=== PATIENT | male | born 1960 | race Caucasian/White ===

== ENCOUNTER 2017-12-10 15:19 | Emergency (ER) | payer MEDICARE, MEDICAID ==
[~2017-12-10] VITALS: Ht 182.9 cm; Wt 92.0 kg
[~2017-12-10 15:19] MED LIST: ALBU18HF2 INH; AMI25T PO; CLON0.5T23 PO; IBUP-1984 PO; META800T87 PO; METH20TA PO; MORP60TA32 PO; MULT-1085 PO; OXYC-150 PO; SPIIN INH
[2017-12-10] MEDS ORDERED: AZIT-55 PO (15:38)
[2017-12-10 15:56] VITALS: BP 131/83
== END 2017-12-10 16:00 | disposition home or self-care (01) ==
LOC: ER 15:20
DX: J20.9 Acute bronchitis, unspecified (principal); J45.909 Unspecified asthma, uncomplicated; G89.29 Other chronic pain; Z98.890 Other specified postprocedural states; Z87.891 Personal history of nicotine dependence; Z88.8 Allergy status to other drugs, medicaments and biological substances; Z79.899 Other long term (current) drug therapy
CPT/HCPCS: 99283

== ENCOUNTER 2017-12-21 17:30 | Emergency (ER) | payer MEDICARE, MEDICAID ==
[~2017-12-21] VITALS: Ht 185.4 cm; Wt 105.0 kg
[~2017-12-21 17:30] MED LIST changes: +AZIT-55 PO
[2017-12-21 18:04] LABS: BASOPHILS # (AUTO) 0.1 X10'3 (0-0.2); BASOPHILS % (AUTO) 1.3 % (0-1); EOSINOPHILS # (AUTO) 0.1 X10'3 (0-0.9); EOSINOPHILS % (AUTO) 1.6 % (0-6); HEMATOCRIT 45.9 % (42.0-52.0); HEMOGLOBIN 15.7 g/dl (14.0-17.9); LYMPHOCYTES # (AUTO) 3.3 X10'3 (1.1-4.8); LYMPHOCYTES % (AUTO) 35.4 % (21-51); MEAN CORPUSCULAR HEMOGLOBIN 30.8 PG (27.0-31.0); MEAN CORPUSCULAR HGB CONC 34.3 % (33.0-36.5); MEAN CORPUSCULAR VOLUME 89.8 FL (78-98); MEAN PLATELET VOLUME 7.7 FL (7.4-10.4); MONOCYTES # (AUTO) 0.5 X10'3 (0-0.9); MONOCYTES % (AUTO) 5.6 % (2-12); NEUTROPHILS # (AUTO) 5.2 X10'3 (1.8-7.7); NEUTROPHILS % (AUTO) 56.1 % (42-75); PLATELET COUNT 388 X10'3 (140-440); RED BLOOD COUNT 5.11 X10'6 (4.70-6.10); WHITE BLOOD COUNT 9.3 X10'3 (4.5-11.0)
[2017-12-21 18:08] LABS: CLARITY,URINE CLEAR (Clear); COLOR,URINE YELLOW (Yellow); GLUCOSE, URINE NEGATIVE (Neg); KETONES,URINE NEGATIVE (Neg); LEUKOCYTE ESTERASE ,URINE NEGATIVE (Neg); NITRITES, URINE NEGATIVE (Neg); OCCULT BLOOD,URINE NEGATIVE (Neg); PROTEIN,URINE NEGATIVE (Neg); UROBILINOGEN,URINE 0.2 E.U/dL (0.2-1.0)
[2017-12-21 18:13] LABS: UA COLLECTION TYPE CLN CATCH MIDSTREAM
[2017-12-21 18:14] LABS: PARTIAL THROMBOPLASTIN TIME 27 SECONDS (22-32)
[2017-12-21 18:20] LABS: ALANINE AMINOTRANSFERASE 31 U/L (12-78); ALBUMIN 4.4 G/DL (3.4-5.0); ALBUMIN/GLOBULIN RATIO 1.1 (1.1-1.5); ALKALINE PHOSPHATASE 83 IU/L (46-116); ANION GAP 9 (8-16); ASPARTATE AMINO TRANSFERASE 18 U/L (10-37); BILIRUBIN,TOTAL 0.5 MG/DL (0.1-1.0); BLOOD UREA NITROGEN 15 MG/DL (7-18); BUN/CREATININE RATIO 14.6 (5.4-32.0); CALCIUM 9.9 MG/DL (8.5-10.1); CHLORIDE 102 MMOL/L (99-107); CREATININE 1.03 MG/DL (0.60-1.10); GLUCOSE 106 MG/DL (70-104); POTASSIUM 4.1 MMOL/L (3.5-5.1); SODIUM 141 MMOL/L (135-145); TOTAL CARBON DIOXIDE 29.9 MMOL/L (24-32); TOTAL PROTEIN 8.4 G/DL (6.4-8.2); eGFR 74 ML/MIN
[2017-12-21] MEDS ORDERED: APAP (18:28)
[2017-12-21] MEDS ORDERED: METHYLPHENIDATE 20 MG (18:28)
[2017-12-21] MEDS ORDERED: MORPHINE (18:28)
[2017-12-21] MEDS ORDERED: AZITHROMYCIN 250 MG TABLET (18:28)
[2017-12-21] MEDS ORDERED: VENTOLIN (18:28)
[2017-12-21] MEDS ORDERED: CLONAZEPAM 1 MG (18:28)
[2017-12-21] MEDS ORDERED: TIOTROPIUM (18:28)
[2017-12-21] MEDS ORDERED: OXYCODONE (18:28)
[2017-12-21 19:08] VITALS: BP 114/71
[2017-12-23 13:30] LABS: OCCULT BLOOD STOOL NEGATIVE (Neg)
== END 2017-12-21 19:11 | disposition home or self-care (01) ==
LOC: ER 17:31
DX: K64.9 Unspecified hemorrhoids (principal); G89.29 Other chronic pain; J45.909 Unspecified asthma, uncomplicated; Z88.8 Allergy status to other drugs, medicaments and biological substances; Z79.899 Other long term (current) drug therapy
CPT/HCPCS: 36415; 80053; 81003; 82272; 85025; 85610; 85730; 86885; 86900; 86901; 99284

== ENCOUNTER 2018-05-08 06:23 | Day surgery (SDC) | payer MEDICAID, MEDICARE ==
[2018-05-01 13:56] LABS: BASOPHILS % (AUTO) 0.4 % (0-1); EOSINOPHILS # (AUTO) 0.2 X10'3 (0-0.9); EOSINOPHILS % (AUTO) 2.4 % (0-6); LYMPHOCYTES # (AUTO) 3.2 X10'3 (1.1-4.8); LYMPHOCYTES % (AUTO) 33.1 % (21-51); MEAN CORPUSCULAR HEMOGLOBIN 31.1 PG (27.0-31.0); MEAN CORPUSCULAR HGB CONC 33.4 % (33.0-36.5); MEAN CORPUSCULAR VOLUME 93.2 FL (78-98); MEAN PLATELET VOLUME 7.3 FL (7.4-10.4); MONOCYTES # (AUTO) 0.7 X10'3 (0-0.9); MONOCYTES % (AUTO) 7.3 % (2-12); NEUTROPHILS # (AUTO) 5.4 X10'3 (1.8-7.7); NEUTROPHILS % (AUTO) 56.8 % (42-75); PRE OP HEMATOCRIT 40.9 % (42.0-52.0); PRE OP HEMOGLOBIN 13.7 g/dL (14.0-17.9); PRE OP PLATELET COUNT 279 X10'3 (140-440); RED BLOOD COUNT 4.39 X10'6 (4.70-6.10); RED CELL DISTRIBUTION WIDTH 15.5 % (11.5-14.5)
[2018-05-01 14:13] LABS: ALBUMIN/GLOBULIN RATIO 1.1 (1.1-1.5); ALKALINE PHOSPHATASE 82 IU/L (46-116); BLOOD UREA NITROGEN 10 MG/DL (7-18); BUN/CREATININE RATIO 10.4 (5.4-32.0); CALCIUM 9.6 MG/DL (8.5-10.1); CHLORIDE 105 MMOL/L (99-107); CREATININE 0.96 MG/DL (0.60-1.10); PRE OP ALT 32 U/L (30-65); PRE OP ANION GAP 10 (8-16); PRE OP AST 18 U/L (10-37); PRE OP BILIRUB, TOTAL 0.3 MG/DL (0.0-1.0); PRE OP GLUCOSE 145 MG/DL (70-104); PRE OP POTASSIUM 3.6 MMOL/L (3.4-5.1); PRE OP SODIUM 141 MMOL/L (135-145); TOTAL CARBON DIOXIDE 26.3 MMOL/L (24-32); TOTAL PROTEIN 7.7 G/DL (6.4-8.2); eGFR 81 ML/MIN
[2018-05-08] VITALS (9 sets, daily range): BP systolic 91–118; BP diastolic 42–74
[~2018-05-08] VITALS: Ht 182.9 cm; Wt 93.2 kg
[~2018-05-08 06:23] MED LIST changes: -ALBU18HF2 INH; -AMI25T PO; +AMIT-189 PO; -AZIT-55 PO; -CLON0.5T23 PO; +Cefazolin 2GM/100ML NS IVPB 100 ML IV ONE; +IPRA4AER IH; +LISI30TA4 PO; +META-25 PO; -META800T87 PO; +MORP30TA60 PO; -MORP60TA32 PO; -OXYC-150 PO; +PER10325T PO; -SPIIN INH; +[UNRECOGNIZED DRUG - OTHER]; +albuterol 2.5 MG/3 ML nebule NEB ONE; +famotidine 20mg tablet PO ONE; +ringers solution, lacted 1,000 ML IV SCH
[2018-05-08] MEDS ORDERED: LIDOcaine 1% (10mg/ml) 2ml vial ONE (06:37)
[2018-05-08] MEDS ORDERED: BUPIVAcaine/PF 7.5mg/ml (0.75%) 10ml vial ONE (08:11)
[2018-05-08] MEDS ORDERED: ringers solution, lacted 1,000 ML IV SCH (08:21)
[2018-05-08] MEDS ORDERED: LIDOcaine 0.5% (5mg/ml) 50ml vial ONE (08:22)
[2018-05-08] MEDS ORDERED: ondansetron/PF 4mg/2ml inj IV PRN (08:25)
[2018-05-08] MEDS ORDERED: meperidine/PF 25mg/ml syringe IV PRN ×3 (08:25)
[2018-05-08] MEDS ORDERED: morphine 4 MG/ML inj SYRINge IV PRN ×2 (08:25)
[2018-05-08] MEDS ORDERED: proCHLORperazine 10 MG/2 ml inj IV PRN (08:25)
[2018-05-08] MEDS ORDERED: fentaNYL/PF 50MCG/1 ML 2ML syringe ONE (08:26)
[2018-05-08] MEDS ORDERED: midazolam 2 mg/2 ml injection ONE ×2 (08:27→08:47)
[2018-05-08] MEDS ORDERED: propofol inj 20 ML IV ONE (08:48)
== END 2018-05-08 10:36 | disposition home or self-care (01) ==
LOC: PAS 06:23
PROVIDERS: ATTEND Orthopaedic Surgery Hand Surgery
DX: M18.12 Unilateral primary osteoarthritis of first carpometacarpal joint, left hand (principal); M25.742 Osteophyte, left hand; F17.210 Nicotine dependence, cigarettes, uncomplicated; J45.998 Other asthma; I10 Essential (primary) hypertension; F41.8 Other specified anxiety disorders; M19.90 Unspecified osteoarthritis, unspecified site; Z79.2 Long term (current) use of antibiotics; G89.29 Other chronic pain; Z91.048 Other nonmedicinal substance allergy status; Z79.891 Long term (current) use of opiate analgesic; Z88.5 Allergy status to narcotic agent; Z88.8 Allergy status to other drugs, medicaments and biological substances; Z79.899 Other long term (current) drug therapy; Z98.890 Other specified postprocedural states
CPT/HCPCS: 25447; 36415; 80053; 82948; 85025; 94640; 94760; A6449; J0690; J2001; J2250; J2704; J3010; J3490; J7120; L8630; A7000

== ENCOUNTER 2018-06-08 22:41 | Emergency (ER) | payer MEDICARE, OTHER ==
[~2018-06-08] VITALS: Ht 182.9 cm; Wt 92.3 kg
[~2018-06-08 22:41] MED LIST changes: -Cefazolin 2GM/100ML NS IVPB 100 ML IV ONE; -albuterol 2.5 MG/3 ML nebule NEB ONE; -famotidine 20mg tablet PO ONE; -ringers solution, lacted 1,000 ML IV SCH
[2018-06-08 22:54] VITALS: BP 118/45
[2018-06-08] MEDS ORDERED: oxyCODONE/APAP 10/325mg tablet PO ONE (23:20)
[2018-06-08] MEDS ORDERED: PENI250T2 PO (23:23)
== END 2018-06-08 23:29 | disposition home or self-care (01) ==
LOC: ER 22:41
DX: K04.7 Periapical abscess without sinus (principal); K02.9 Dental caries, unspecified; J45.909 Unspecified asthma, uncomplicated; G89.29 Other chronic pain; Z90.89 Acquired absence of other organs; Z98.890 Other specified postprocedural states; Z88.8 Allergy status to other drugs, medicaments and biological substances; Z79.2 Long term (current) use of antibiotics; Z79.899 Other long term (current) drug therapy
CPT/HCPCS: 99283

== ENCOUNTER 2018-11-08 19:40 | Emergency (ER) | payer MEDICARE, MEDICAID ==
[~2018-11-08] VITALS: Ht 182.9 cm; Wt 102.9 kg
[2018-11-08 19:49] VITALS: BP 154/86
[2018-11-08] MEDS ORDERED: AZIT250T PO (20:44)
[2018-11-08] MEDS ORDERED: ROBDML PO (20:44)
[2018-11-08] MEDS ORDERED: BENZ-16 PO (20:44)
[2018-11-08] MEDS ORDERED: ALBU8.5H8 IH (21:09)
== END 2018-11-08 21:27 | disposition home or self-care (01) ==
LOC: ER 19:40
DX: J20.9 Acute bronchitis, unspecified (principal); J45.909 Unspecified asthma, uncomplicated; G89.29 Other chronic pain; Z90.89 Acquired absence of other organs; Z98.890 Other specified postprocedural states; Z88.8 Allergy status to other drugs, medicaments and biological substances; Z79.2 Long term (current) use of antibiotics; Z79.899 Other long term (current) drug therapy
CPT/HCPCS: 99283

== ENCOUNTER 2019-08-21 14:44 | Emergency (ER) | payer MEDICARE, MEDICAID ==
[~2019-08-21] VITALS: Ht 182.9 cm; Wt 109.1 kg
[~2019-08-21 14:44] MED LIST changes: +ALBU8.5H8 IH; +ROBDML PO
[2019-08-21] MEDS ORDERED: ipratropium/albuterol 3ml nebule NEB ONE (15:20)
[2019-08-21] MEDS ORDERED: predniSONE 20 mg tablet PO ONE (15:20)
[2019-08-21 15:45] VITALS: BP 134/74
[2019-08-21 15:49] LABS: BASOPHILS # (AUTO) 0.1 X10'3 (0-0.2); BASOPHILS % (AUTO) 1.1 % (0-1); EOSINOPHILS # (AUTO) 0.2 X10'3 (0-0.9); HEMOGLOBIN 13.5 g/dl (14.0-17.9); LYMPHOCYTES # (AUTO) 2.7 X10'3 (1.1-4.8); LYMPHOCYTES % (AUTO) 36.9 % (21-51); MEAN CORPUSCULAR HEMOGLOBIN 30.6 PG (27.0-31.0); MEAN CORPUSCULAR HGB CONC 33.8 g/dL (33.0-36.5); MEAN CORPUSCULAR VOLUME 90.6 FL (78-98); MONOCYTES # (AUTO) 0.8 X10'3 (0-0.9); MONOCYTES % (AUTO) 10.6 % (2-12); NEUTROPHILS # (AUTO) 3.6 X10'3 (1.8-7.7); NEUTROPHILS % (AUTO) 48.4 % (42-75); PLATELET COUNT 269 X10'3 (140-440); RED BLOOD COUNT 4.42 X10'6 (4.70-6.10); RED CELL DISTRIBUTION WIDTH 15.4 % (11.5-14.5); WHITE BLOOD COUNT 7.4 X10'3 (4.5-11.0)
[2019-08-21 15:58] LABS: ALANINE AMINOTRANSFERASE 32 U/L (12-78); ALBUMIN 3.6 G/DL (3.4-5.0); ALKALINE PHOSPHATASE 102 IU/L (46-116); ANION GAP 9 (8-16); ASPARTATE AMINO TRANSFERASE 20 U/L (10-37); BILIRUBIN,TOTAL 0.2 MG/DL (0.1-1.0); BLOOD UREA NITROGEN 11 MG/DL (7-18); BUN/CREATININE RATIO 11.6 (5.4-32.0); CALCIUM 8.8 MG/DL (8.5-10.1); CHLORIDE 105 MMOL/L (99-107); CREATININE 0.95 MG/DL (0.60-1.10); GLUCOSE 156 MG/DL (70-104); POTASSIUM 3.9 MMOL/L (3.5-5.1); SODIUM 142 MMOL/L (135-145); TOTAL CARBON DIOXIDE 27.6 MMOL/L (24-32); TOTAL PROTEIN 7.1 G/DL (6.4-8.2); eGFR 81 ML/MIN
[2019-08-21 16:06] LABS: D-DIMER 0.43 MG/L FEU (0-0.50); PARTIAL THROMBOPLASTIN TIME 27 SECONDS (22-32)
[2019-08-21] MEDS ORDERED: PRED20TA PO (16:33)
== END 2019-08-21 16:51 | disposition left against medical advice (07) ==
LOC: ER 14:44
DX: J44.1 Chronic obstructive pulmonary disease with (acute) exacerbation (principal); G89.29 Other chronic pain; Z98.890 Other specified postprocedural states; Z88.8 Allergy status to other drugs, medicaments and biological substances; Z79.899 Other long term (current) drug therapy
CPT/HCPCS: 36415; 71045; 80053; 83880; 84484; 85025; 85379; 85610; 85730; 93005; 94640; 94760; 99284; J7512

== ENCOUNTER 2020-10-27 17:59 | Emergency (ER) | payer MEDICARE ==
[~2020-10-27] VITALS: Ht 182.9 cm; Wt 109.1 kg
[2020-10-27 18:27] VITALS: BP 147/80
[2020-10-27] MEDS ORDERED: AMOX-580 PO (19:58)
== END 2020-10-27 20:12 | disposition home or self-care (01) ==
LOC: ER 17:59
DX: J32.9 Chronic sinusitis, unspecified (principal); R09.81 Nasal congestion; J45.909 Unspecified asthma, uncomplicated; G89.29 Other chronic pain; Z98.890 Other specified postprocedural states; Z90.89 Acquired absence of other organs; Z88.8 Allergy status to other drugs, medicaments and biological substances; Z79.2 Long term (current) use of antibiotics; Z79.899 Other long term (current) drug therapy
CPT/HCPCS: 99283

== ENCOUNTER 2021-02-06 19:36 | Emergency (ER) | payer MEDICARE ==
[~2021-02-06] VITALS: Ht 182.9 cm; Wt 110.0 kg
[~2021-02-06 19:36] MED LIST changes: +BUDE10.2 INH; +BUPR1FIL5 SL; +GABA600T13 PO; -IPRA4AER IH; -META-25 PO; -METH20TA PO; -MORP30TA60 PO; -PER10325T PO; -ROBDML PO
--- NOTE | 2021-02-06 19:43 | NUR ---
security removed drug paraphernalia and substance with appearance to black to heroin from patient.
--- NOTE | 2021-02-06 20:22 | NUR ---
PT ACCIDENTALLY REMOVED NASAL CANNULA AND O2 WENT DOWN TO 83. NC REPLACED AND O2 NOW 94
[2021-02-06] MEDS ORDERED: normal saline 1000ML IV soln IVB ONE (21:25)
[2021-02-06 21:41] LABS: BASOPHILS # (AUTO) 0.1 X10'3 (0-0.2); BASOPHILS % (AUTO) 0.7 % (0-1); EOSINOPHILS # (AUTO) 0.2 X10'3 (0-0.9); HEMATOCRIT 41.4 % (42.0-52.0); HEMOGLOBIN 13.8 g/dl (14.0-17.9); LYMPHOCYTES # (AUTO) 3.1 X10'3 (1.1-4.8); LYMPHOCYTES % (AUTO) 43.6 % (21-51); MEAN CORPUSCULAR HEMOGLOBIN 30.7 PG (27.0-31.0); MEAN CORPUSCULAR HGB CONC 33.4 g/dL (33.0-36.5); MEAN CORPUSCULAR VOLUME 91.8 FL (78-98); MEAN PLATELET VOLUME 8.7 FL (7.4-10.4); MONOCYTES # (AUTO) 0.4 X10'3 (0-0.9); MONOCYTES % (AUTO) 6.3 % (2-12); NEUTROPHILS # (AUTO) 3.3 X10'3 (1.8-7.7); NEUTROPHILS % (AUTO) 46.4 % (42-75); PLATELET COUNT 309 X10'3 (140-440); RED BLOOD COUNT 4.51 X10'6 (4.70-6.10); RED CELL DISTRIBUTION WIDTH 15.6 % (11.5-14.5)
[2021-02-06 21:43] LABS: ALANINE AMINOTRANSFERASE 36 U/L (12-78); ALBUMIN 3.6 G/DL (3.4-5.0); ALBUMIN/GLOBULIN RATIO 0.9 (1.1-1.5); ALKALINE PHOSPHATASE 103 IU/L (46-116); ANION GAP 12 (8-16); ASPARTATE AMINO TRANSFERASE 29 U/L (10-37); BILIRUBIN,TOTAL 0.4 MG/DL (0.1-1.0); BLOOD UREA NITROGEN 15 MG/DL (7-18); BUN/CREATININE RATIO 13.4 (5.4-32.0); CALCIUM 8.9 MG/DL (8.5-10.1); CHLORIDE 108 MMOL/L (99-107); CREATININE 1.12 MG/DL (0.60-1.10); GLUCOSE 147 MG/DL (70-104); LIPASE 101 U/L (73-393); POTASSIUM 4.3 MMOL/L (3.5-5.1); SODIUM 145 MMOL/L (135-145); TOTAL CARBON DIOXIDE 25.4 MMOL/L (24-32); TOTAL PROTEIN 7.4 G/DL (6.4-8.2); eGFR 67 ML/MIN
[2021-02-06 23:06] VITALS: BP 128/84
== END 2021-02-06 23:08 | disposition home or self-care (01) ==
LOC: ER 19:37
DX: T40.491A Poisoning by other synthetic narcotics, accidental (unintentional), initial encounter (principal); I10 Essential (primary) hypertension; J44.9 Chronic obstructive pulmonary disease, unspecified; G89.29 Other chronic pain; Z90.89 Acquired absence of other organs; Z98.890 Other specified postprocedural states; Z88.6 Allergy status to analgesic agent; Z88.8 Allergy status to other drugs, medicaments and biological substances; Z79.899 Other long term (current) drug therapy; Y92.89 Other specified places as the place of occurrence of the external cause
CPT/HCPCS: 36415; 80053; 83690; 85025; 93005; 99284; J7030; 96360

== ENCOUNTER 2021-04-05 12:25 | Emergency (ER) | payer MEDICARE ==
[~2021-04-05] VITALS: Ht 182.9 cm; Wt 104.5 kg
[2021-04-05 12:38] VITALS: BP 120/78
== END 2021-04-05 12:57 | disposition home or self-care (01) ==
LOC: ER 12:25
DX: G89.29 Other chronic pain (principal); M79.10 Myalgia, unspecified site; Z76.0 Encounter for issue of repeat prescription; I10 Essential (primary) hypertension; J44.9 Chronic obstructive pulmonary disease, unspecified; Z88.6 Allergy status to analgesic agent; Z88.8 Allergy status to other drugs, medicaments and biological substances
CPT/HCPCS: 99281

== ENCOUNTER 2021-05-13 21:03 | Emergency (ER) | payer MEDICARE ==
[~2021-05-13] VITALS: Ht 182.9 cm; Wt 95.4 kg
[2021-05-13 21:49] LABS: BASOPHILS # (AUTO) 0.1 X10'3 (0-0.2); BASOPHILS % (AUTO) 0.8 % (0-1); EOSINOPHILS # (AUTO) 0.1 X10'3 (0-0.9); EOSINOPHILS % (AUTO) 1.8 % (0-6); HEMATOCRIT 33.6 % (42.0-52.0); HEMOGLOBIN 11.4 g/dl (14.0-17.9); LYMPHOCYTES # (AUTO) 1.9 X10'3 (1.1-4.8); LYMPHOCYTES % (AUTO) 31.5 % (21-51); MEAN CORPUSCULAR HEMOGLOBIN 30.7 PG (27.0-31.0); MEAN CORPUSCULAR HGB CONC 33.8 g/dL (33.0-36.5); MEAN CORPUSCULAR VOLUME 90.7 FL (78-98); MEAN PLATELET VOLUME 7.9 FL (7.4-10.4); MONOCYTES # (AUTO) 0.6 X10'3 (0-0.9); MONOCYTES % (AUTO) 10.4 % (2-12); NEUTROPHILS # (AUTO) 3.4 X10'3 (1.8-7.7); NEUTROPHILS % (AUTO) 55.5 % (42-75); PLATELET COUNT 359 X10'3 (140-440); RED CELL DISTRIBUTION WIDTH 15.5 % (11.5-14.5); WHITE BLOOD COUNT 6.2 X10'3 (4.5-11.0)
[2021-05-13 22:15] LABS: ALANINE AMINOTRANSFERASE 23 U/L (12-78); ALBUMIN 2.9 G/DL (3.4-5.0); ALBUMIN/GLOBULIN RATIO 0.8 (1.1-1.5); ALKALINE PHOSPHATASE 79 IU/L (46-116); ANION GAP 13 (8-16); ASPARTATE AMINO TRANSFERASE 14 U/L (10-37); BILIRUBIN,TOTAL 0.2 MG/DL (0.1-1.0); BLOOD UREA NITROGEN 79 MG/DL (7-18); BUN/CREATININE RATIO 30.5 (5.4-32.0); CALCIUM 7.7 MG/DL (8.5-10.1); CHLORIDE 107 MMOL/L (99-107); CREATININE 2.59 MG/DL (0.60-1.10); GLUCOSE 117 MG/DL (70-104); POTASSIUM 3.6 MMOL/L (3.5-5.1); SODIUM 141 MMOL/L (135-145); TOTAL CARBON DIOXIDE 21.5 MMOL/L (24-32); TOTAL PROTEIN 6.7 G/DL (6.4-8.2); eGFR 25 ML/MIN
[2021-05-13] MEDS ORDERED: normal saline 1000ml 1,000 ML IV ONE ×2 (22:35)
[2021-05-13 23:50] VITALS: BP 103/55
== END 2021-05-14 06:10 | disposition home or self-care (01) ==
LOC: ER 21:03
DX: E86.0 Dehydration (principal); R07.89 Other chest pain; M25.511 Pain in right shoulder; M25.512 Pain in left shoulder; I10 Essential (primary) hypertension; J44.9 Chronic obstructive pulmonary disease, unspecified; G89.29 Other chronic pain; Z98.890 Other specified postprocedural states; Z79.899 Other long term (current) drug therapy; Z88.8 Allergy status to other drugs, medicaments and biological substances
CPT/HCPCS: 36415; 80053; 83605; 84145; 85025; 93005; 96360; 99284; J7030

== ENCOUNTER 2024-07-08 08:56 | Outpatient (CLI) | payer MEDICARE ==
[~2024-07-08] VITALS: Ht 182.9 cm; Wt 98.9 kg
[~2024-07-08 08:56] MED LIST changes: +ALBU8.5H17 IH; -ALBU8.5H8 IH; -AMIT-189 PO; +AMIT50TA15 PO
[2024-07-08] MEDS: albuterol 2.5 MG/3 ML nebule NEB ONE (09:52)
[2024-07-08 09:56] VITALS: PULSE 106; RESP 20; O2SAT 94
[2024-07-08 10:08] VITALS: PULSE 97; RESP 20
== END 2024-07-08 23:59 | disposition home or self-care (01) ==
LOC: RT 08:56
PROVIDERS: ATTEND Student in an Organized Health Care Education/Training Program
DX: J44.9 Chronic obstructive pulmonary disease, unspecified (principal)
CPT/HCPCS: 94060; 94729; 94760